=== PATIENT | male | born 1955 | race Caucasian/White ===

== ENCOUNTER 2017-01-24 02:31 | Emergency (ER) | payer OTHER ==
[2017-01-24] MEDS ORDERED: Ketorolac INJ* 60 MG/2 ML VIAL IM ONE (02:52)
--- NOTE | 2017-01-24 03:40 | ED ---
Lincoln Nieves Anna, scribed for Marv Thomas MD on 01/24/17 at 0250 . Back Pain - HPI Summary HPI Summary: Patient is a 61 y/o male coming to [facility] presenting with the sudden onset of intermittent lower back pain that began seven days ago. The pain was initially like a spasm. Since last night, the pain has originated near his right hip and radiated down his right leg. The pain is exacerbated by movement. He describes the severity of the pain as 3/10. He has had pain similar to the spasm before, which is usually alleviated by rest and the use of ibuprofen. Last night, he took 600 mg of ibuprofen and a dose of Norflex, but this has not alleviated the pain that radiates down his leg. His history is significant for spina bifida minor. - History of Current Complaint Chief Complaint: EDBackInjuryPain Stated Complaint: LR BACK PAIN Hx Obtained From: Patient Onset/Duration: Sudden Onset, Lasting Days, Still Present, Worse Since - last night Onset/Duration: Started Days Ago, Still Present, Worse Since - last night Timing: Intermittent Severity Initially: Moderate Severity Currently: Moderate Pain Intensity: 3 Pain Scale Used: 0-10 Numeric Character: Spasmodic Aggravating Symptom(s): Movement - Allergies/Home Medications Allergies/Adverse Reactions: Allergies Allergy/AdvReac Type Severity Reaction Status Date / Time Pickled Sickle Pear Allergy Hives Uncoded 01/24/17 02:47 PMH/Surg Hx/FS Hx/Imm Hx Endocrine/Hematology History: Denies: Hx Diabetes, Hx Thyroid Disease Cardiovascular History: Denies: Hx Hypertension Respiratory History: Reports: Hx Chronic Obstructive Pulmonary Disease (COPD) Denies: Hx Asthma GI History: Denies: Hx Ulcer Musculoskeletal History: Denies: Hx Scoliosis Sensory History: Reports: Other Sensory Impairments - Lens implants Opthamlomology History: Reports: Other Sensory Impairments - Lens implants Neurological History: Reports: Other Neuro Impairments/Disorders - HX OF SPINA BIFIDA MINOR - Surgical History Surgery Procedure, Year, and Place: ganglion removed from left ankle, cyst removed from arm, double hernia repair, pilonial cyst Infectious Disease History: No Infectious Disease History: Denies: Hx Hepatitis, Hx Human Immunodeficiency Virus (HIV), Traveled Outside the [place] in Last 30 Days - Family History Known Family History: Positive: Cardiac Disease, Other - Cancer, CVA - Social History Alcohol Use: None Substance Use Type: Reports: None Smoking Status (MU): Heavy Every Day Tobacco Smoker Type: Cigarettes Amount Used/How Often: 1 ppd Length of Time of Smoking/Using Tobacco: 40 years Have You Smoked in the Last Year: Yes Review of Systems Constitutional: Negative Positive: Myalgia - lower back pain, radiating down right leg Psychological: Normal All Other Systems Reviewed And Are Negative: Yes Physical Exam Triage Information Reviewed: Yes Vital Signs On Initial Exam: Initial Vitals Temp Pulse Resp BP Pulse Ox 97.1 F 85 16 163/88 95 01/24/17 02:35 01/24/17 02:35 01/24/17 02:35 01/24/17 02:35 01/24/17 02:35 Vital Signs Reviewed: Yes Appearance: Positive: Well-Appearing, Pain Distress - mild discomfort Skin: Positive: Warm Head/Face: Positive: Normal Head/Face Inspection Eyes: Positive: [place] ENT: Positive: Hearing grossly normal Neck: Positive: Supple Respiratory/Lung Sounds: Positive: Breath Sounds Present Abdomen Description: Positive: Nontender, Soft Musculoskeletal: Positive: Other - mild paralumbar spasm Neurological: Positive: Sensory/Motor Intact, Alert, Oriented to Person Place, Time, Reflexes Intact, Normal Gait Psychiatric: Positive: Affect/Mood Appropriate Diagnostics - Vital Signs Vital Signs Temp Pulse Resp BP Pulse Ox 01/24/17 02:35 97.1 F 85 16 163/88 95 - Laboratory Lab Statement: Any lab studies that have been ordered have been reviewed, and results considered in the medical decision making process. Re-Evaluation - Re-Evaluation First Eval Change: Improved - much less discomfort Back Pain Course/Dx - Course Assessment/Plan: Patient is a 61 y/o male coming to [facility] presenting with the sudden onset of intermittent lower back pain that began six days ago. The pain was initially like a spasm. Since last night, the pain has originated near his right hip and radiated down his right leg. He describes the severity of the pain as 3/10. He has had pain similar to the spasm before, which is usually alleviated by rest and the use of ibuprofen. Last night, he took 600 mg of ibuprofen and a dose of Norflex, but this has not alleviated the pain that radiates down his leg. His history is significant for spina bifida minor. The patient was given Toradol in the ED course. Patient will be discharged with follow up from primary care physician and a prescription for Flexeril. Patient is agreeable with plan. - Diagnoses Provider Diagnoses: Back pain Discharge - Discharge Plan Condition: Stable Disposition: HOME Prescriptions: Cyclobenzaprine TAB* [Flexeril 10 MG TAB*] 10 mg PO TID #30 tab Patient Education Materials: Cyclobenzaprine (By mouth), Back Pain (ED) Referrals: Guru Mares NP [Primary Care Provider] - Additional Instructions: Follow up with your primary care provider within 48 hours. Return to the Emergency Department for new or worsening symptoms. The documentation as recorded by the Lincoln bird Anna accurately reflects the service I personally performed and the decisions made by me, Marv Thomas MD.
[2017-01-24] MEDS ORDERED: oxyCODONE/Acetamin 5/325 MG* TAB PO ONE (03:57)
[2017-01-24 04:30] VITALS: BP 147/75
== END 2017-01-24 04:29 | disposition home or self-care (01) ==
LOC: ED 02:31
DX: M54.5 Low back pain (principal); F17.210 Nicotine dependence, cigarettes, uncomplicated
CPT/HCPCS: 96372; 99282; A9270-GY; J1885

== ENCOUNTER 2017-01-27 11:55 | Emergency (ER) | payer OTHER ==
[2017-01-27] MEDS ORDERED: Dexamethasone IV* 4 MG/ML 1 ML (4 MG) IM ONE (12:52)
[2017-01-27] MEDS ORDERED: Ketorolac INJ* 60 MG/2 ML VIAL IM ONE (12:52)
[2017-01-27] MEDS ORDERED: Orphenadrine Citrate IV* 30 MG/ML 2 ML VIAL IM ONE (12:53)
--- NOTE | 2017-01-27 12:54 | ED ---
Back Pain - HPI Summary HPI Summary: 61 male presents with complaints of lower back pain that began approximately one week ago after an injury while pushing/lifting heavy equipment at work. He heard an audible pop at this time. Patient was taking Advil and resting which did give him some relief. He then however had experienced worsening pain that began Thursday with radiation of pain down right leg. He was seen in ED on and given flexeril. He had some relief with muscle relaxer and advil however decided to go back to work as well as do chores at his home, that included dragging a goat back up into the barn and his pain had increased again. He feels snapping of his back when getting in and out of a vehicle and with certain movements. The pain radiates down into his right buttocks and leg. Denies numbness and tingling. States the pain is sharp shooting and burning. Ibuprofen and flexeril have not seemed to help. Denies saddle anesthesia, weakness and bladder/bowel incontinence. Denies hip, knee and ankle pain. states she noticed some bruising and a lump on the right side of his lower spine. Denies abdominal pain and any other PMHx. Is able to walk and bear weight. 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 Negative: Weakness , Numbness, Tingling, Abdominal Pain, Bladder Incontinence, Bowel Incontinence, Pain with Weight Bearing Related History: Previous Back Injury - 1 week ago - Risk Factors AAA Risk Factors: Negative TAD Risk Factors: Negative Cauda Equina Risk Factors: Negative Epidural Abscess Risk Factors: Negative - Allergies/Home Medications Allergies/Adverse Reactions: Allergies Allergy/AdvReac Type Severity Reaction Status Date / Time Pickled Sickle Pear Allergy Hives Uncoded 01/27/17 11:58 PMH/Surg Hx/FS Hx/Imm Hx Endocrine/Hematology History: Denies: Hx Diabetes, Hx Thyroid Disease Cardiovascular History: Denies: Hx Hypertension Respiratory History: Reports: Hx Chronic Obstructive Pulmonary Disease (COPD) Denies: Hx Asthma GI History: Denies: Hx Ulcer Musculoskeletal History: Denies: Hx Scoliosis Sensory History: Reports: Other Sensory Impairments - Lens implants Opthamlomology History: Reports: Other Sensory Impairments - Lens implants Neurological History: Reports: Other Neuro Impairments/Disorders - HX OF SPINA BIFIDA MINOR - Surgical History Surgery Procedure, Year, and Place: ganglion removed from left ankle, cyst removed from arm, double hernia repair, pilonial cyst Infectious Disease History: No Infectious Disease History: Denies: Hx Hepatitis, Hx Human Immunodeficiency Virus (HIV), Traveled Outside the [place] in Last 30 Days - Family History Known Family History: Positive: Cardiac Disease, Other - Cancer, CVA - Social History Alcohol Use: None Substance Use Type: Reports: None Smoking Status (MU): Heavy Every Day Tobacco Smoker Type: Cigarettes Amount Used/How Often: 1 ppd Length of Time of Smoking/Using Tobacco: 40 years Have You Smoked in the Last Year: Yes Review of Systems Constitutional: Negative Cardiovascular: Negative Respiratory: Negative Gastrointestinal: Negative Positive: Arthralgia, Myalgia, Decreased ROM - lower back Positive: Bruising - lower right back at level of L3-S1 with deformity Neurological: Negative Psychological: Normal All Other Systems Reviewed And Are Negative: Yes Physical Exam Triage Information Reviewed: Yes Vital Signs On Initial Exam: Initial Vitals Temp Pulse Resp BP Pulse Ox 97.3 F 101 19 143/83 95 01/27/17 11:56 01/27/17 11:56 01/27/17 11:56 01/27/17 11:56 01/27/17 11:56 tachycardia noted, re-taken and in a normal range of 95pbm. elevated BP boted, was monitored and recommended to have re-checked at PCP. Vital Signs Reviewed: Yes Appearance: Positive: Well-Appearing, Well-Nourished, Pain Distress - mild with movements, sitting comfortable while still in chair Skin: Positive: Warm, Skin Color Reflects Adequate Perfusion, Dry, Other - ecchymosis noted on right lower back at L3-S1 paraspinal region. palpable deformity of right lateral to spine when compared to left at same area.. Negative: Erythema @ Head/Face: Positive: Normal Head/Face Inspection Eyes: Positive: Normal, Conjunctiva Clear ENT: Positive: Normal ENT inspection, Hearing grossly normal Dental: Negative: Percussion Tenderness @ Neck: Positive: Supple, Nontender Respiratory/Lung Sounds: Positive: Clear to Auscultation, Breath Sounds Present. Negative: Decreased Breath Sounds, Wheezes Cardiovascular: Positive: Normal, RRR, Pulses are Symmetrical in both Upper and Lower Extremities - 2+ pedal and radial pulses. Negative: Leg Edema Left, Leg Edema Right Abdomen Description: Positive: Nontender, No Organomegaly, Soft Bowel Sounds: Positive: Present Musculoskeletal: Positive: Normal, Strength/ROM Intact - LE strength and ROM intact. Worse on hip extension of right LE. able but painful. with intermittent episodes of excrutiatingpain. without weakness, Pain @ - on palpation of right paraspinal muscle at L3-S1 region, ecchymosis and notable deformity on palpation of same area. No bondy tenderness or deformity noted. sensation of back and LE intact bilateral. skin intact., Other - (+) SLR. Negative: Limited @, Interruption @, Jamie Sign Left, Jamie Sign Right, Edema Left, Edema Right Neurological: Positive: Normal, Sensory/Motor Intact - sensation intact no saddle anesthesia, Alert, Oriented to Person Place, Time, CN Intact II-III, Reflexes Intact, NV Bundle Intact Distally, Normal Gait - with limping, favoring left LE Psychiatric: Positive: Normal Diagnostics - Vital Signs Vital Signs Temp Pulse Resp BP Pulse Ox 01/27/17 11:59 97.3 F 100 17 143/83 96 01/27/17 11:56 97.3 F 101 19 143/83 95 - Laboratory Lab Statement: Any lab studies that have been ordered have been reviewed, and results considered in the medical decision making process. - Radiology lumbosacral Xray Interpretation: No Acute Changes - Multilevel degenerative changes as described above without significant change since the December 20, 2013 lumbar spine radiograph. Radiology Interpretation Completed By: Radiologist Re-Evaluation - Re-Evaluation First Eval Re-Evaluation Time: 13:20 Change: Improved - had some relief after medications Back Pain Course/Dx - Course Course Of Treatment: x-ray of lumbarsacral spine obtained and negative for any fracture or acute changes. given dexamethasone, noraflex and toradol to help with pain. patient did not want narcotic medication at this time. sent home with ortho referral, steroid, and naproxen. did not need any more flexeril. heat /ice and REST. aware of worsening signs and symptoms to watch out and return for. follow up with pcp and ortho for possible further imaging if symptoms persist. no concern for cauda equina or epidual abscess at this time due to history, BOBBY and PE findings. - Diagnoses Differential Diagnosis/HQI/PQRI: Positive: Fracture, Herniated Disc, Strain, Sprain Provider Diagnoses: Lumbosacral strain, Back pain at L4-L5 level Discharge - Discharge Plan Condition: Stable Disposition: HOME Prescriptions: Naproxen TAB* [Naprosyn 250 mg TAB*] 500 mg PO Q8H PRN #30 tab PRN Reason: Pain predniSONE TAB* [Deltasone TAB*] 20 mg PO DAILY #3 tab Patient Education Materials: Low Back Strain (ED) Forms: *Work Release Referrals: Guru Mares NP [Primary Care Provider] - Chirag Verma MD [Medical Doctor] - Additional Instructions: Take prescribed muscle relaxer given to you at your last visit as directed. Do not drive while taking this medication. Take prescribed Naproxen and prednisone for pain and inflammation. Take Naproxen with food. Alternate ice and heat multiple times daily. Ice to decrease swelling and inflammation and heat to loosen and relax injured muscle. Refrain from physical activity and encourage bed rest for the next couple of days to allow back to heal. This is very important. You want to allow injury to heal completely before returning to work/physical activity as tweaking your back can cause the pain to return. Strongly recommend follow up with back specialist if symptoms persist or do not improve for further imaging. Follow up with PCP.
--- NOTE | 2017-01-27 13:47 | RAD ---
INDICATION: Right-sided back pain with radiation down the right lower extremity after "pushing a heavy object" on January 17, 2017 COMPARISON: Similar examination dated December 20, 2013 TECHNIQUE: 6 views of the lumbar spine were obtained. FINDINGS: Degenerative changes of the lumbar spine include loss of intervertebral disc height and bony proliferation overlying the lower thoracic and lumbar spine. There is nonspecific straightening of the normal lumbar lordosis. Anterior marginal osteophyte formation is noted. There is no severe spondylolisthesis R discontinuity of the pars interarticularis on the oblique views.. IMPRESSION: Multilevel degenerative changes as described above without significant change since the December 20, 2013 lumbar spine radiograph.
[2017-01-27 14:07] VITALS: BP 140/85
== END 2017-01-27 14:06 | disposition home or self-care (01) ==
LOC: ED 11:55
DX: S39.012A Strain of muscle, fascia and tendon of lower back, initial encounter (principal); J44.9 Chronic obstructive pulmonary disease, unspecified; X50.0XXA Overexertion from strenuous movement or load, initial encounter; Y93.89 Activity, other specified; Y92.9 Unspecified place or not applicable; F17.210 Nicotine dependence, cigarettes, uncomplicated
CPT/HCPCS: 72110; 96372; 99282; J1100; J1885; J2360